=== PATIENT | male | born 1960 | race Caucasian/White ===

== ENCOUNTER 2023-10-18 11:09 | Emergency (ER) | payer MEDICARE, SELFPAY ==
[2023-10-18 11:11] VITALS: BP 162/87; PULSE 75; RESP 16; TEMP 36.7; O2SAT 95
--- NOTE | 2023-10-18 11:13 | ED.RN ---
PT STATES HE ALSO HAS A RASH ON HIS RIGHT LEG, STATES HE LOOKED IT UP AND THINKS ITS FROM A FATTY LIVER WHICH HE HASN'T HAD. STATES AFTER SEEING THAT HE THINKS HES HAVING LIVER PAIN
[2023-10-18 11:19] VITALS: BMI 58.3
--- NOTE | 2023-10-18 11:20 | EDS_ITS ---
HPI <OPAL Guallpa - Last Filed: 10/18/23 12:58> History of Present Illness Chief Complaint: Abscess Narrative Narrative: 63-year-old male noticed a bump on the back of his neck 1 week ago. His thinks it is enlarging. He states it is not painful but he is here to see if it needs drained. No fever or chills. PFSH <OPAL Guallpa - Last Filed: 10/18/23 12:58> [facility] Medical History (Updated 10/18/23 @ 12:58 by OPAL Guallpa) Broken ankle Type 2 diabetes mellitus Umbilical hernia Home Medications allopurinol 300 mg tablet 300 mg PO DAILY 10/18/23 [History Last Taken 10/18/23] furosemide 20 mg tablet 20 mg PO BID 10/18/23 [History Last Taken 10/18/23] lisinopril 40 mg tablet 40 mg PO DAILY 10/18/23 [History Last Taken 10/18/23] meloxicam 15 mg tablet 15 mg PO DAILY 10/18/23 [History Last Taken 10/18/23] metformin 500 mg tablet 500 mg PO BID 10/18/23 [History Last Taken 10/18/23] metoprolol tartrate 25 mg tablet 25 mg PO BID 10/18/23 [History Last Taken 10/18/23] Allergy/AdvReac Type Severity Reaction Status Date / Time No Known Allergies Allergy Verified 10/18/23 11:13 Social History Smoking Status: Former smoker ROS <OPAL Guallpa - Last Filed: 10/18/23 12:58> ROS ED ROS Narrative Constitutional: Negative for fever, chills, malaise. Skin: Negative for wound. EXAM <OPAL Guallpa - Last Filed: 10/18/23 12:58> Physical Exam Narrative Exam Narrative: CONST: Patient sitting in no acute distress. NECK: Normal inspection. RESP: No respiratory distress, CTAB. CVS: Regular rate and rhythm, no murmur, no gallop. SKIN: Quarter sized firm area in the posterior left neck fold, no fluctuance or crepitus, slight overlying erythema but no warmth. EXTREMITIES: Normal appearance, no pedal edema. NEURO: Oriented x4. PSYCH: Normal affect. Const Vital Signs: 10/18/23 11:11 10/18/23 11:54 Temperature 98.1 F Temperature Source Temporal Pulse Rate 75 78 Respiratory Rate 16 22 H Blood Pressure 162/87 H 142/66 H Blood Pressure Mean 112 91 Pulse Ox 95 95 Oxygen Delivery Method Room Air <Dr. Khurram Peck DO - Last Filed: 10/18/23 13:29> Physical Exam Const Vital Signs: 10/18/23 11:11 10/18/23 11:54 Temperature 98.1 F Temperature Source Temporal Pulse Rate 75 78 Respiratory Rate 16 22 H Blood Pressure 162/87 H 142/66 H Blood Pressure Mean 112 91 Pulse Ox 95 95 Oxygen Delivery Method Room Air [facility] <OPAL Guallpa - Last Filed: 10/18/23 12:58> [facility] Narrative Medical decision making narrative: History gathered from: Patient and Patient has a palpable cyst in the left posterior neck fold with slight overlying erythema. It feels more firm and fluctuant but bedside ultrasound showed there is fluid. Differential includes sebaceous cyst versus abscess. I anesthetized with lidocaine and performed I&D with an 11 blade scalpel. Abscess was explored with curved hemostats and about 3 cc of purulent material was expressed. He has no systemic symptoms and no overlying cellulitis so no indication for antibiotics. Patient given wound care instructions and discharged in stable condition. <Dr. Khurarm Peck DO - Last Filed: 10/18/23 13:29> [facility] Narrative Medical decision making narrative: History gathered from: Patient and Patient has a palpable cyst in the left posterior neck fold with slight overlying erythema. It feels more firm and fluctuant but bedside ultrasound showed there is fluid. Differential includes sebaceous cyst versus abscess. I anesthetized with lidocaine and performed I&D with an 11 blade scalpel. Abscess was explored with curved hemostats and about 3 cc of purulent material was expressed. Quarter-inch iodoform packing was placed. He has no systemic symptoms and no overlying cellulitis so no indication for antibiotics. Patient given wound care instructions and discharged in stable condition.\ I have personally performed a face to face assessment of the patient and have reviewed the ROSS Note. I performed a substantive portion of the visit including all aspects of the following. My gage findings include: History is patient notes 2 weeks of a developing soreness possible abscess to the left side of his neck. He states he has had sores before. He is wondering if this could possibly need to be drained Exam is area of induration with skin discoloration without significant erythema over the left posterior neck. Patient is morbidly obese which greatly limits examination Medical Decison Making bedside ultrasound demonstrates a loculated fluid collection in the subcutaneous tissue without significant blood flow. There appears to be debris in it. I&D was performed with expression of purulent material. Given the lack of cellulitic changes antibiotics are not indicated at this time. Packing will need to be removed within 72 hours. Discharge Plan Triage Chief Complaint: Abscess ED Midlevel Provider: Rupinder Stoll ED Provider: Khurram Peck Dx/Rx/DC Orders Clinical Impression: Abscess, neck, Encounter for incision and drainage procedure Instructions: ED Abscess Incision And Drainage Prescriptions: No Action metformin 500 mg tablet 500 mg PO BID lisinopril 40 mg tablet 40 mg PO DAILY furosemide 20 mg tablet 20 mg PO BID allopurinol 300 mg tablet 300 mg PO DAILY meloxicam 15 mg tablet 15 mg PO DAILY metoprolol tartrate 25 mg tablet 25 mg PO BID Primary Care Provider: Care Physician,No Primary Referrals: David Miranda DO [Med Staff - [facility]] - Care Physician,No Primary [Primary Care Provider] - Activity Restrictions/Additional Instructions: Gently clean area with soap and water, I provided referrals for primary care and dermatology per your request. [facility] dermatology at [phone] Disposition Disposition: Home, Self Care Discharge Date/Time: 10/18/23 13:07
[2023-10-18 11:54] VITALS: BP 142/66; PULSE 78; RESP 22; O2SAT 95
[2023-10-18] MEDS: Lidocaine 1% (20 ml mdv) 20 ML Vial INFILT (12:50)
== END 2023-10-18 13:07 | disposition home or self-care (01) ==
PROVIDERS: Emergency Provider Emergency Medicine; Visit Provider Emergency Medicine
DX: L02.11 Cutaneous abscess of neck (principal); E11.9 Type 2 diabetes mellitus without complications; Z87.891 Personal history of nicotine dependence; Z79.899 Other long term (current) drug therapy
CPT/HCPCS: 10061; 99283

== ENCOUNTER 2024-09-26 12:40 | Outpatient (RCR) | payer MEDICARE, SELFPAY ==
--- NOTE | 2024-10-04 12:52 | HP.OTFCE_ITS ---
Task Lift Floor PDL: No Ability Knee PDL: No Ability Waist PDL: No Ability Shoulder PDL: No Ability Overhead PDL: No Ability Comments: pt only able to lift 5# while sitting in wheel chair at waist level. This weight does not qualify pt to lift at the sedentary level. Work Activity/Posture Bending: Occasional Ability (1-33% of day) Comments: with external support only Squatting: No Ablility (0% of day) Kneeling: No Ablility (0% of day) Reaching out: Occasional Ability (1-33% of day) Comments: while sitting Reaching up: Occasional Ability (1-33% of day) Comments: while sitting Sitting: Constant Ability (67-100% of day) Walking: Occasional Ability (1-33% of day) Comments: low occasional ability with asistive device Standing: Occasional Ability (1-33% of day) Comments: low occasional ability with asistive device Reference Reference: Duration Sedentary Sedentary Light Light Light Medium Medium Medium Heavy Very Heavy Heavy Occasional (0-33% of day) Frequent (34-66% of day) Constant (67-100% of day) 10 # Negligible Negligible 15 # 8 # Negligible 20 # 10# Negli. 35 # 18 # 7 # 50 # 25 # 10 # 75 # 100 # >100 # 38 # 50 # >50 # 15 # 20 # >20 # Patient Information Height: 1.78 m Weight:: 186.426 kg Hand Dominance: left Medical History Medical History Including Restrictions: Pt states he has been in poor health for quite some time. Pt states he was awarded disability in 2020. Pt states he is trying to mtg. his dx the best he can with his primary care provider. Pt feels changes with his arthritis in his knees and back have continue to limit his safe functional mobility. Pt states he is on cpap with 2 liters of O2 at night. Due to his difficulty with breathing he does sleep in a recliner. pt has large abdominal hernia that he attempted to have repaired in 2018/2018 but he was not medical stable to undergo surgery. medications Meloxicam, Lisinopril, Furosemide, metoprolol tartrate, MetFormin, atorvastatin, allopurinol, banophen Diagnoses Diagnoses: DMII controlled with medication Morbid obesity bilateral knee pain bilateral ankle pain COPD Gout large abdominal Hernia arthritis back CTS hx left clavicle fx OA bilateral hands HTN Morbid Obesity with BMI of 50.0-59.9 (Adult) Symptoms Symptoms: pt gets bilateral knee and ankle pain SOB limited ambulation back pain Pain Pain: pt states his current pain 5-6/10. Pt states he does take meloxicam for his pain. pt states he did take his medication already today. pt states with increase movement pain increases even with his pain medication. 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 pt states he was unable to continue working due to his medical conditions and went on disability at that time. Behavioral Behavioral: pt cooperative ADLS ADLS: pt lives in a 1 story home with his . entry steps 3-4 steps with railing- pt need his cane to do the stairs. pt has tub shower with hand rails and shower chair. pt does need assistance with bathing and dressing from his . sits to shave, does not have teeth so he does not stand to brush teeth . pt can drive but no more than 30-40 min does all home mtg. 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 Physical Examination Physical Examination: pt arrives in [place] with his pt demo with adipose tissue and pendulum belly. ROM: neck ROM WFL bilateral shoulder ROM WFL bilateral elbow /wrist and digits WFL- ( therapist noted bilateral thumb CMC arthritis and bilateral MF PIP OA changes) Strength: fet2 peak force strength testing shoulder flexion right 5# left 8# shoulder extension 14# left 19# Biceps right 14# left 14# triceps right 14# left 15# Hip flexion right 10# left 15# Quadricep right 14# left 11# Hamstring right 15# left 13# Right Field Support Engineer Strength Average: 39.33 Left Field Support Engineer Strength Average: 70.00 Right Lateral Pinch Average: 13.33 Left Lateral Pinch Average: 17.33 Right Tripod Pinch Average: 10.00 Left Tripod Pinch Average: 14.66 Comments: pts Spo2 prior to starting 93 therapist noted he does breath through his mouth and SOB Heart rate 80 Sensation: pt states he has had yeas of tingling in LF and RF Fine Motor: denies issue but if his arthritis does cause issues Balance: pt demo poor dynamic standing balance Non Material Handling Activities Bending: with use of external support pt demo the ability to bend forward 3x. pt does hold his breath Pt can bend forward on low occasional ability with external support. Squatting: pt demo the ability to squat 2x with use of external support. Pt demo poor mechanics and increase risk of injury with mario alberto. due to adipose tissue No ability Kneeling: unable Reaching out/up: pt demo the ability to reach up/out 3/3x, 10/10x ( pt had incre ase in back pain to 05/30) therapist noted he was holding his breath pt can reach up/out on occasional abilty Walking: pt states he ambulates with a ww or a cane when he walks. pt states short distances due to pain and breathing issues. pt only able to take 4 steps in clinic -. pt ambulation very limited Standing: pt demo the ability to stand for very short periods of time- 1-2 min due to pain limits pts functional mobility. Sitting: pt demo the ability to sit for 60 min with shifting his body weight Climbing Stairs: unable Dynamic Occasional Lifting Capacity Floor Lift: unable Knee Lift: unable Waist Lift: unable Shoulder Lift: While sitting pt demo the ability to lift 5# maximally Overhead Lift: unable Carrying: pt unable to carry due to need of supportive WW or cane with ambulation.
--- NOTE | 2024-10-04 12:52 | HP.OTFCE.D ---
FCE D/C Summary Discharge text: DONITA PIZARRO was seen for a one time visit for an FCE on 09/26/24 and is discharged.
--- NOTE | 2024-10-04 12:52 | HP.OTFCE.D ---
FCE D/C Summary Discharge text: DONITA PIZARRO was seen for a one time visit for an FCE on 09/26/24 and is discharged.
== END 2024-09-26 19:00 | disposition home or self-care (01) ==
LOC: OT 12:40
PROVIDERS: Referring Provider Nurse Practitioner Family; Visit Provider Nurse Practitioner Family
DX: E66.01 Morbid (severe) obesity due to excess calories (principal); M25.561 Pain in right knee
CPT/HCPCS: 97750